=== PATIENT | male | born 1985 | race Hispanic/Latino ===

== ENCOUNTER 2020-09-02 09:39 | Emergency (ER) | payer OTHER, SELFPAY ==
[2020-09-02] MEDS ORDERED: Acetaminophen 500 MG TAB ONE (09:54)
[2020-09-02 10:14] LABS: #Lymphocytes 0.8 thou/uL (1.20-3.40); #Monocytes 0.4 thou/uL (0.11-0.59); #Neutrophils 11.9 thou/uL (1.40-6.50); %Basophils 0.3 % (0.0-1.0); %Lymphocytes 5.9 % (21.0-51.0); %Monocytes 2.8 % (0.0-10.0); Hemoglobin 13.7 g/dL (14.0-18.0); Mean Corpuscular HGB CONC 32.2 g/dL (32.0-36.0); Mean Corpuscular Hemoglobin 29.2 pg (27.0-31.0); Mean Corpuscular Volume 90.9 fL (78.0-98.0); Mean Platelet Volume 7.3 fL (7.4-10.4); Platelet Count 231 thou/uL (130-400); RBC Distribution Width 10.7 % (11.5-14.5); Red Blood Cell (RBC) Count 4.69 mill/uL (4.70-6.10); White Blood Cell (WBC) Count 13.1 thou/uL (4.8-10.8)
--- NOTE | 2020-09-02 10:17 | RAD ---
RADIOGRAPH CHEST 2 VIEW: DATE: 09/02/2020 TIME: 10:13 AM HISTORY: 34-year-old male with cough COMPARISON: none FINDINGS: At superior segment of left lower lobe, there is a faint, mild, ill-defined infiltrate-like density. Cardiomediastinal silhouette is normal. Right lung is clear. No pleural effusion or pneumothorax. IMPRESSION: Suspicious for mild left lower lobe pneumonia, perhaps viral pneumonia. Consider COVID-19 testing.
[2020-09-02 10:31] LABS: Anion Gap 15 mmol/L (10-20); BUN (Urea Nitrogen) 11 mg/dL (8.9-20.6); Calc. Creatinine Clearance 0 mL/min (70-130); Calcium 8.5 mg/dL (7.8-10.44); Carbon Dioxide 27 mmol/L (22-29); Chloride 99 mmol/L (98-107); Estimated GFR-MDRD 76; Glucose 106 mg/dL (70-105); Potassium 4.3 mmol/L (3.5-5.1); Sodium 137 mmol/L (136-145)
[2020-09-02] MEDS ORDERED: Sodium Chloride 0.9% 100 ML ONE (10:37)
[2020-09-02] MEDS ORDERED: cefTRIAXone\\ROCEPHIN 1 GM VIAL ONE (10:37)
[2020-09-02] MEDS ORDERED: Azithromycin 500 MG VIAL ONE (10:49)
[2020-09-02] MEDS ORDERED: Sodium Chloride 0.9% 250 ML 250 ML ONE (10:49)
== END 2020-09-02 12:02 | disposition short-term general hospital (02) ==
LOC: NAV ERS 09:39
DX: J18.9 Pneumonia, unspecified organism (principal); Z79.899 Other long term (current) drug therapy
CPT/HCPCS: 71046; 80048; 83605; 84484; 85025; 85379; 87040; 94760; 96365; 96375; J0456; J0696; J3490; J7050